=== PATIENT | female | born 1950 | race Caucasian/White ===

== ENCOUNTER → 2016-06-27 | Outpatient (CLI) | payer BC ==
[~2016-06-27] MED LIST: IOHEXOL 300 MG/ML 100ml INJECTION ONE; NORMAL SALINE 100 ML ONE; SALINE FLUSH 10ml SYRINGE ONE
--- NOTE | 2016-06-27 10:26 | DI ---
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 Coronal and sagittal two-dimensional reformats. Automated Exposure Control and Iterative Reconstruction dose reducing techniques were utilized. Contrast: Omnipaque 300 99 mL Findings: Chest: Stable bilateral pulmonary nodules. The largest near the right diaphragm measures 1.5 x 1.2 cm in size. Most of the remaining nodules are less than 1 cm in size. No definite new pulmonary nodules. No consolidative pneumonia, pleural effusion or pneumothorax. The central airways are patent. Postoperative changes in the left chest. No axillary or mediastinal adenopathy. Heart size is unchanged. No pericardial effusion. Abdomen/pelvis: The liver appears normal. The gallbladder, spleen, pancreas and adrenal glands are within normal limits. Kidneys are normal. No abdominal or pelvic lymphadenopathy. Bladder is normal. Uterus is unremarkable. No free fluid. No evidence of a bowel obstruction. The appendix is normal. Bone windows are unchanged without lytic or blastic lesion. Impression: Stable exam. No new or worsening metastatic disease identified in the chest, abdomen or pelvis. .
== END ==
LOC: IMA 07:22
PROVIDERS: ATTEND Internal Medicine Hematology & Oncology
DX: C34.32 Malignant neoplasm of lower lobe, left bronchus or lung (principal); C7A.1 Malignant poorly differentiated neuroendocrine tumors; D51.8 Other vitamin B12 deficiency anemias; E83.42 Hypomagnesemia
CPT/HCPCS: 71260; 74177; J7050; Q9967